=== PATIENT | female | born 2000 | race Hispanic/Latino ===

== ENCOUNTER 2020-11-20 13:35 | Day surgery (SDC) | payer OTHER, SELFPAY ==
[2020-11-20] VITALS (8 sets, daily range): BP systolic 93–139; BP diastolic 55–98; PULSE 61–116; RESP 10–20; TEMP 36.2–36.6; O2SAT 99–100
--- NOTE | ~2020-11-20 | CT_ITS ---
EXAMINATION: CT abdomen pelvis w con EXAM DATE: 11/20/2020 16:00 INDICATION: Right lower quadrant pain. Nausea and vomiting. TECHNIQUE: Spiral CT of the abdomen and pelvis was performed following intravenous injection of 100 m L Omnipaque 350. Axial, coronal and sagittal images were reviewed. The dose-length product (DLP) fo r this examination was 572.35 mGy-cm. The exposure was tailored according to patient size (auto mA e xposure control), and iterative reconstruction (ASIR) was used as additional dose reduction technique . There is no prior study for comparison. FINDINGS: There is an appendicolith, with significantly distended fluid-filled appendix and adjacent inflammation. The diameter of the appendix up to 1.4 cm. No evidence of perforation. The liver, sple en, adrenal glands and pancreas are unremarkable. Gallbladder is unremarkable. No biliary obstructi on. Portal and splenic veins are patent. Kidneys enhance symmetrically. There is no hydronephrosis . The uterus is unremarkable. The bladder is unremarkable. There is no retroperitoneal or pelvic lymphadenopathy. The stomach and small bowel are unremarkable. There is expected amount of colonic stool. No free i ntraperitoneal gas. The heart is normal in size. There are no pericardial or pleural effusions. T he lung bases are unremarkable. The bones are unremarkable. IMPRESSION: Acute uncomplicated appendicitis. I discussed appendicitis with Gus Escobar PA-C at 11/20/2020 16:15 PROFESSOR OF VOICE. Reviewed, dictated and finalized at location A. ESSOR OF VOICE
[2020-11-20 13:56] LABS: Add Urine Microscopic? NO; Appearance Urine Clear (Clear); Bilirubin Urine Negative (Negative); Blood Urine Negative (Negative); Color Urine Straw (Yellow); Glucose Urine UA Negative (Negative); Ketones Urine Negative (Negative); Leukocyte Esterase Ur Negative LEU/UL (Negative); Nitrate Urine Negative (Negative); Protein Urine Negative (Negative); Specific Grav Ur 1.011 (1.001-1.035); Urobilinogen Urine Negative mg/dL (<2.0)
[2020-11-20] MEDS: ONDANSETRON INJ 4 MG/2 ML VIAL IV PUSH ×2 (14:25→16:21)
[2020-11-20] MEDS: SODIUM CHLORIDE 0.9% IV 1,000 ML 999 ML IV CONT (14:25)
[2020-11-20] MEDS: FAMOTIDINE 20 MG/2 ML VIAL IV PUSH (14:26)
--- NOTE | 2020-11-20 14:29 | PC.NURSE ---
Lab rejected green and purple top tube. Blood being re-drawn at this time.
--- NOTE | 2020-11-20 14:30 | ED.ABDPAIN ---
HPI - Abdominal Pain General Chief Complaint: Abdominal Pain <Gus Escobar PA-C Last Filed: 11/20/20 16:32> Stated Complaint: abdominal pain <Gus Escobar PA-C Rut Last Filed: 11/20/20 16:32> Time Seen by Provider: 11/20/20 13:37 <JULIEN Santoyo Last Filed: 11/20/20 16:32> Source: patient and family <JULIEN Santoyo Last Filed: 11/20/20 16:32> Mode of arrival: ambulatory <Gus Neal ShawnJULIEN Rut Last Filed: 11/20/20 16:32> Limitations: no limitations <Gus Neal ShawnJULIEN Last Filed: 11/20/20 16:32> History of Present Illness HPI narrative: Patient is a 20-year-old female who presents to emergency department for evaluation of abdominal pain that began Saturday described as a crampy abdominal pain is now having worsening pain in the lower abdomen patient notes one episode of emesis this morning denies similar occurrence in the past denies other complaints presents in no distress has not taken anything for her symptoms pain does not radiate and is made worse with p.o. intake <Gus Escobar PA-C Last Filed: 11/20/20 16:32> Related Data Allergies/Adverse Reactions: Allergies Allergy/AdvReac Type Severity Reaction Status Date / Time No Known Drug Allergies Allergy Unknown Verified 11/20/20 14:12 <Gus Escobar PA-C Last Filed: 11/20/20 16:32> Review of Systems Review of Systems: All systems reviewed & are unremarkable except as noted in HPI and below <Gus Escobar PA-C Last Filed: 11/20/20 16:32> PMFSH Past Medical History Medical History: Medical History Asthma <Gus Escobar PA-C Last Filed: 11/20/20 16:32> Social History Social History: Social History Social History: marijuana everyday Smoking status: Never smoker Substance use type: marijuana <JULIEN Santoyo Last Filed: 11/20/20 16:32> Exam Narrative: Exam Narrative: GENERAL: Well-appearing, well-nourished, and in no acute distress. HEAD: Normocephalic, atraumatic. EYES: PERRLA and EOMI. ENT: Nares clear, no rhinorrhea or epistaxis. Mucous membranes moist. CHEST: Clear to auscultation. No respiratory distress. No wheezes rales or rhonchi HEART: Regular rate and rhythm. No murmur heard. Normal peripheral pulses. ABDOMEN: Soft, tenderness in the lower quadrants of the abdomen specifically the right lower quadrant no rebound or guarding, nondistended EXTREMITIES: Normal range of motion. No edema. SKIN: Warm, dry, no rash. NEURO: No focal deficits. Alert and oriented x3. PSYCH: Normal mood and affect. <Gus Escobar PA-C - Last Filed: 11/20/20 16:32> Course Course Emergency Course: Patient at this time in the room no distress has been hydrated will be given IV antibiotic has been given medications for pain patient aware of discussion with surgeon patient afebrile nontoxic. <JULIEN Santoyo Last Filed: 11/20/20 16:32> ENTRY LEVEL PARALEGAL/PA Physician Supervision For this patient encounter, I reviewed the ENTRY LEVEL PARALEGAL or PA documentation, treatment plan, and medical decision making; and I had [id number] time with this patient. Patient is aware she will be going to have appendectomy today. Her mother is bedside. She is in acute distress. <Estephanie Alfaro MD - Last Filed: 11/20/20 17:13> Consultations Consultation #1: Discussed case with Dr. Henry who would like the patient to receive 2 g of Ancef and to have consent for a laparoscopic appendectomy <Gus Escobar PA-C - Last Filed: 11/20/20 16:32> Date: 11/20/20 <JULIEN Santoyo Last Filed: 11/20/20 16:32> Time: 16:31 <JULIEN Santoyo Last Filed: 11/20/20 16:32> Vital Signs Vital signs: Vital Signs Temperature 97.4 F L 11/20/20 13:39 Pulse Rate 62 11/20/20 13:39 Respiratory Rate 14 11/20/20 13:39 Blood Pre
[2020-11-20 15:11] LABS: Basophils Percent Auto 0.1 % (0.2-1.2); Eosinophils Percent Auto 0.1 % (0-4.4); Hemoglobin 12.2 g/dL (12.0-15.0); Immature Granulocyte Absolute 0.04 K/mm3 (0.00-0.031); Immature Granulocyte Percent A 0.5 % (0-0.5); Lymphocytes Absolute Auto 1.26 K/mm3 (0.9-3.2); Lymphocytes Percent Auto 14.8 % (18.3-44.2); Mean Corpuscular Hemoglobin 27.4 pg (26-34); Mean Platelet Volume 9.5 fl (7.4-10.4); Monocytes Absolute Auto 0.8 K/mm3 (0.1-0.6); Neutrophils Absolute Auto 6.4 K/mm3 (1.3-6.7); Neutrophils Percent Auto 75.5 % (45.5-73.1); Platelet Count Result 283 k/mm3 (150-375); Red Blood Count 4.46 M/mm3 (4.2-5.4); Red Cell Distribution Width 13.2 % (11.5-14.5); White Blood Count 8.5 K/mm3 (4.5-10.0)
[2020-11-20 15:22] LABS: Alanine Aminotransferase 8 U/L (4-35); Alkaline Phosphatase 74 U/L (38-126); Anion Gap 8 mmol/L (8-16); Aspartate Amino Transferase 18 U/L (14-36); Bilirubin,Total 0.5 mg/dL (0.2-1.3); Blood Urea Nitrogen 6 mg/dL (7-17); Calcium 9.1 mg/dL (8.4-10.2); Carbon Dioxide 27 mmol/L (22-30); Chloride 102 mmol/L (98-107); Estimated CRCL calculation 157 ml/min; Estimated Glomerular Filt Rate > 60; Glucose 93 mg/dL (65-105); Lipase 36 U/L (23-300); Potassium 3.5 mmol/L (3.4-5.0); Sodium 137 mmol/L (137-145)
--- NOTE | 2020-11-20 15:29 | PC.NURSE ---
patient to restroom. waiting for CT results.
--- NOTE | 2020-11-20 16:18 | PC.NURSE ---
patient back from CT. waiting for further orders from provider vs disposition.
[2020-11-20] MEDS: MORPHINE SULFATE (*CRX) 4 MG/ML INJ IV PUSH (16:21)
--- NOTE | 2020-11-20 16:41 | WPDANESEPP ---
Anes - Eval Pre Procedure Procedure: Operation Date: 11/20/20 05:15 Proposed Procedures p Laparoscopic Appendectomy - David Henry MD Date/Time: 11/20/20 16:41 Surgeon: nicky Pre Op Diagnosis: abdominal pain Patient Data Age: 20 Gender: F Height: 1.63 m Weight: 83.91 kg Last Vital Signs Temp 36.6 C 11/20/20 14:08 Pulse 84 11/20/20 14:08 Resp 18 11/20/20 14:08 BP 139/84 11/20/20 14:08 Pulse Ox 100 11/20/20 14:08 Allergies Allergy/AdvReac Type Severity Reaction Status Date / Time No Known Drug Allergies Allergy Unknown Verified 11/20/20 14:12 Home Medications Medication Instructions Recorded Confirmed Type albuterol sulfate 2 puff INHALATION QID PRN #6.7 g 11/20/20 Rx Laboratory Tests 11/20/20 11/20/20 11/20/20 13:50 15:00 15:00 WBC 8.5 K/mm3 K/mm3 (4.5-10.0) RBC 4.46 M/mm3 M/mm3 (4.2-5.4) Hgb 12.2 g/dL g/dL (12.0-15.0) Hct 37.0 % % (37.0-47.0) MCV 83.0 fl fl (80-100) MCH 27.4 pg pg (26-34) MCHC 33.0 g/dl g/dl (32-36) RDW 13.2 % % (11.5-14.5) Plt Count 283 k/mm3 k/mm3 (150-375) MPV 9.5 fl fl (7.4-10.4) Immature Gran % (Auto) 0.5 % % (0-0.5) Neut % (Auto) 75.5 % H % (45.5-73.1) Lymph % (Auto) 14.8 % L % (18.3-44.2) [place] % (Auto) 9.0 % H % (2.6-8.5) Eos % (Auto) 0.1 % % (0-4.4) Baso % (Auto) 0.1 % L % (0.2-1.2) Lymph # (Auto) 1.26 K/mm3 K/mm3 (0.9-3.2) [place] # (Auto) 0.8 K/mm3 H K/mm3 (0.1-0.6) Eos # (Auto) 0.0 K/mm3 K/mm3 (0-0.3) Baso # (Auto) 0.0 K/mm3 K/mm3 (0.0-0.1) Abs Immat Gran (auto) 0.04 K/mm3 H K/mm3 (0.00-0.031) Absolute Neuts (auto) 6.4 K/mm3 K/mm3 (1.3-6.7) Absolute Nucleated RBC 0.0 K/mm3 K/mm3 (0.0-0.012) Nucleated RBC % 0.0 % % (0.0-0.2) Sodium 137 mmol/L mmol/L (137-145) Potassium 3.5 mmol/L mmol/L (3.4-5.0) Chloride 102 mmol/L mmol/L (98-107) Carbon Dioxide 27 mmol/L mmol/L (22-30) Anion Gap 8 mmol/L mmol/L (8-16) BUN 6 mg/dL L mg/dL (7-17) Creatinine 0.50 mg/dL L mg/dL (0.7-1.0) Estim Creat Clear Calc 157 ml/min ml/min Estimated GFR > 60 (59 - ) Glucose 93 mg/dL mg/dL (65-105) Calcium 9.1 mg/dL mg/dL (8.4-10.2) Total Bilirubin 0.5 mg/dL mg/dL (0.2-1.3) AST 18 U/L U/L (14-36) ALT 8 U/L U/L (4-35) Alkaline Phosphatase 74 U/L U/L (38-126) Total Protein 8.0 g/dL g/dL (6.3-8.2) Albumin 4.0 g/dL g/dL (3.5-5.1) Lipase 36 U/L U/L (23-300) Urine Color Straw (Yellow) Urine Appearance Clear (Clear) Urine pH 8.0 (5.0-9.0) Ur Specific [place] 1.011 (1.001-1.035) Urine Protein Negative mg/dL mg/dL (Negative) Urine Glucose (UA) Negative mg/dL mg/dL (Negative) Urine Ketones Negative mg/dL mg/dL (Negative) Ur Blood (Man) Negative (Negative) Urine Nitrate Negative (Negative) Urine Bilirubin Negative (Negative) Urine Urobilinogen Negative mg/dL mg/dL (<2.0) Leukocyte Esterase Rfl Negative SWATHI/UL SWATHI/UL (Negative) HCG: negative Patient hx anesthesia problems: none Family hx anesthesia problems: none PMFSH Past Medical History Medical History (Updated 11/20/20 @ 16:45 by Chaparro Clemons CRNA) Asthma Social History Social History (Updated 11/20/20 @ 16:46 by Chaparro Clemons CRNA) Social History: marijuana everyday Smoking status: Never smoker Substance use type: marijuana Exam Day of Procedure 11/20/20 16:41 Patient weight: obese Heart: regular rate and rhythm Lungs: clear to auscultation Airway: Mallampati
--- NOTE | 2020-11-20 16:44 | PC.NURSE ---
This RN took patient by stretcher to OR holding. patient released to [facility] in OR.
--- NOTE | 2020-11-20 17:05 | PM.SD ---
Same Day Admit/Disch: HPI History of Present Illness Chief complaint: abdominal pain Narrative: Eve Paz is a 20 year old female with 2 day history of mid abdominal pain that moved to the right lower quadrant. Last night it got worse. She had some vomiting. It sometimes radiates to her back. She came to the emergency room were she was noted to have a normal white blood cell count. CT scan however showed a dilated appendix of 14 mm with periappendiceal inflammatory changes consistent with acute appendicitis. She is taken to surgery now for laparoscopic appendectomy. She is generally healthy although she does have asthma. She smokes marijuana daily no previous abdominal surgery PMFSH Past Medical History Medical History Asthma Social History Social History Social History: marijuana everyday Smoking status: Never smoker Substance use type: marijuana Same Day Admit/Disch: Med Pre-admit Medications Home Medications Medication Instructions Recorded Confirmed Type albuterol sulfate 2 puff INHALATION QID PRN #6.7 g 11/20/20 Rx hydrocodone-acetaminophen 1 - 2 tablet PO Q6H PRN #7 tablet 11/20/20 Rx ketorolac 10 mg PO Q6H 4 Days #16 tablet 11/20/20 Rx Exam Const: General: comfortable, no acute distress, alert and awake HENMT: Head: normocephalic and atraumatic Mouth: Yes Normal oral and palatal mucosa present Eyes: Conjunctivae: conjunctivae normal Pupils: Equal, round and reactive pupils present EOM: EOMs intact bilaterally Neck: Neck: normal visual inspection, no lymphadenopathy and nontender Resp: Effort & Inspection: normal respiratory effort Auscultation: clear to auscultation bilaterally Cardio: Rate: regular rate Rhythm: regular rhythm Heart sounds: no gallops, no murmurs and no rubs GI: Inspection: non-distended, no obesity and no scars GI Palp: Yes Soft to palpation, Yes Tenderness to palpation present (GI) (Both lower quadrants right more than left), Yes Guarding due to palpation present (GI) (Right lower quadrant), No Hepatomegaly present, No Splenomegaly present, No Hernia present and No Palpable mass present Auscultation: normal bowel sounds Skin: Lesions: no lesions Rashes: no rashes Neuro: General: no focal motor deficits and CN's II-XI intact bilaterally Cranial nerves: Yes Equal, round and reactive pupils present, Yes Bilaterally intact EOM present, Yes facial symmetry and Yes Midline tongue present Speech: normal speech Motor exam (neuro): 5/5 motor strength present throughout and Motor abnormalities not present Extrem: General: no clubbing, cyanosis or edema and edema Psych: Affect: normal affect Thought process: Normal thought process present Insight: Good insight present (Psych) DS: Data Data Completed and Pending Labs on day of discharge: Labs from last 24 hours 11/20/20 11/20/20 11/20/20 15:00 15:00 13:50 WBC 8.5 RBC 4.46 Hgb 12.2 Hct 37.0 MCV 83.0 MCH 27.4 MCHC 33.0 RDW 13.2 Plt Count 283 MPV 9.5 Immature Gran % (Auto) 0.5 Neut % (Auto) 75.5 H Lymph % (Auto) 14.8 L [place] % (Auto) 9.0 H Eos % (Auto) 0.1 Baso % (Auto) 0.1 L Lymph # (Auto) 1.26 [place] # (Auto) 0.8 H Eos # (Auto) 0.0 Baso # (Auto) 0.0 Abs Immat Gran (auto) 0.04 H Absolute Neuts (auto) 6.4 Absolute Nucleated RBC 0.0 Nucleated RBC % 0.0 Sodium 137 Potassium 3.5 Chloride 102 Carbon Dioxide 27 Anion Gap 8 BUN 6 L Creatinine 0.50 L Estim Creat Clear Calc 157 Estimated GFR > 60 Glucose 93 Calcium 9.1 Total Bilirubin 0.5 AST 18 ALT 8 Alkaline Phosphatase 74 Total Protein 8.0 Albumin 4.0 Lipase 36 Urine Color Straw Urine Appearance Clear Urine pH 8.0 Ur Specific [place] 1.011 Urine Protein Negative Urine Glucose (UA) Negativ
--- NOTE | 2020-11-20 17:14 | P.PNAN_ITS ---
Anes - Eval Final PreProcedure Day of Procedure 11/20/20 17:14 Patient weight: obese Heart: regular rate and rhythm Lungs: clear to auscultation Airway: Mallampati scale class II Neurological: alert and oriented Last oral intake: >/= 8 hours ASA classification: II Emergent: yes Anesthetic plan: proceed Anesthesia type and monitoring: general ETT and standard monitoring Informed Consent: The patient's anesthetic plan and its attendant risks and be nefits were discussed with the patient/family/POA. Questions were solicited and answers provided to the satisfaction of the patient/family/POA.
[2020-11-20] MEDS: LACTATED RINGERS 1,000 ML 30 ML IV CONT ×2 (17:16→18:09)
--- NOTE | 2020-11-20 17:16 | PM.PROC ---
Procedure Note - Detailed Date of procedure: 11/20/20 Pre-op diagnosis: abdominal pain acute appendicitis Post-op diagnosis: same Procedure performed: Laparoscopic appendectomy Description of procedure: The patient was taken to surgery and induced into general anesthesia. The abdomen was prepped and draped. Trocars were placed in the usual fashion using 0.5% Marcaine with epinephrine and applied Medical optical trocars. A 5 mm camera was used. The patient was placed in Trendelenburg with the right side elevated. The appendix was found and was elevated anteriorly. Dissection was carried out in the mesoappendix. The mesoappendix was dissectedand the appendiceal vessels cauterized for hemostasis. Eventually the base of the appendix was skeletonized. The appendix was ligated at its base with a Vicryl endo-loop. It was amputated just above the ligature and the mucosa of the appendiceal stump was cauterized. The appendix was immediately placed in an Endo-Catch bag and retrieved through the 10 11 left lower quadrant trocar site. We replaced the 10 11 trocar and reviewed the right lower quadrant and areas of dissection. All looked good with no evidence of bleeding or other problems. We evacuated CO2 and removed the trocar sleeves. Skin wounds were closed with subcuticular 4 O Monocryl skin suture. The wounds were dressed with Exofin surgical adhesive. The patient was awakened and taken to recovery in good condition. Sponge and needle counts were correct x2. Anesthesia: GETA and local (0.5% Marcaine with epinephrine) Surgeon: David Henry MD Drawer In Stitch Bonding Machine: Tyrel BARRON Estimated blood loss (mL): 5 Drains: No Packing: No Pathology: yes (Appendix) Complications: None Condition: stable Disposition: PACU Findings: Acute non perforated appendicitis
[2020-11-20] MEDS: ceFAZolin 2 GM/D5W 50 ML 2 GM/50 ML BAG IVPB ×2 (17:19)
[2020-11-20] MEDS: KETOROLAC 30 MG/ML VIAL (*BKC) IV PUSH (17:51)
--- NOTE | 2020-11-20 18:02 | SUR.PHASEI ---
1700 pt brought to pacu to be prepared for surgery by rolly medina gina, crna, tootie wade, internet designer. dr saunders also at bedside discussing options with pt and rather to continue with surgery or treat with antibiotics. pt agrees to proceed with surgery. consent signed at bedside.
== END 2020-11-20 19:40 | disposition home or self-care (01) ==
LOC: ANHED 16:32 → ANHSURGERY 16:33
PROVIDERS: Emergency Medicine; Emergency Provider General Practice; PCP Pediatrics; Visit Provider Surgery
PROC: 0DTJ4ZZ Resection of Appendix, Percutaneous Endoscopic Approach (ICD-10-PCS; CPT 44970; principal; 2020-11-20 05:15)
DX: K35.30 Acute appendicitis with localized peritonitis, without perforation or gangrene (principal); F12.90 Cannabis use, unspecified, uncomplicated; J45.909 Unspecified asthma, uncomplicated; E66.9 Obesity, unspecified
CPT/HCPCS: 44970; 36415; 74177; 80053; 81003; 81025; 83690; 85025; 88304; 96361; 96365; 96375; 96376; 99285; A9270; J0131; J0330; J0690; J1100; J1885; J2270; J2405; J2704; J2710; J3010; J7030; J7120; Q9967

== ENCOUNTER 2020-11-26 08:38 | Observation (INO) | payer OTHER, SELFPAY ==
--- NOTE | ~2020-11-26 | XR_ITS ---
EXAMINATION: XR chest 1V portable EXAM DATE: 11/26/2020 09:18 INDICATION: low grade fever, post-appendectomy surgical site pain. TECHNIQUE: Portable AP frontal chest x-ray was obtained. There is no prior study for comparison. FINDINGS: The lungs are clear. There are no pleural effusions. The cardiomediastinal silhouette is within normal limits. There is no pneumothorax suspected. The bones and soft tissues are unremarkab le. IMPRESSION: No acute cardiopulmonary findings. Reviewed, dictated and finalized at location A.
--- NOTE | ~2020-11-26 | CT_ITS ---
EXAMINATION: CT abdomen pelvis w con EXAM DATE: 11/26/2020 11:34 INDICATION: s/p appendectomy , abscess. Low abdominal pain. TECHNIQUE: Spiral CT of the abdomen and pelvis was performed following intravenous injection of 100 m L Omnipaque 350. Axial, coronal and sagittal images were reviewed. The dose-length product (DLP) fo r this examination was 563.06 mGy-cm. The exposure was tailored according to patient size (auto mA e xposure control), and iterative reconstruction (ASIR) was used as additional dose reduction technique . Comparison is made to prior examination from 11/20/2020. FINDINGS: There is been interval appendectomy. Interval development of a small pericecal abscess an uring 2 x 4 cm. Some scattered reactive pericecal lymph nodes. There is no direct line of site to thi s for percutaneous drainage. On prior study there was small amount of free pelvic fluid in the pouch of Juan Ramon. Today there are similar amount but now there is enhancing rim to this with several small foci of gas, consistent with abscess. This also measures about 2 x 4 cm. There is fat stranding left lower quadrant abdominal wall with skin thickening, subcutaneous fluid an d gas without contained organized wall. Region measures about 3 cm in diameter, probably small postop erative hematoma but cellulitis or early developing abscess not excludable. Several tiny foci of free intraperitoneal gas likely postoperative. The liver, spleen, adrenal glands and pancreas are unremarkable. Gallbladder is unremarkable. No bi liary obstruction. Portal and splenic veins are patent. Kidneys enhance symmetrically. There is no hydronephrosis. The uterus is anteverted and morphologically normal. The bladder is unremarkable . There is no retroperitoneal or pelvic lymphadenopathy. The stomach and small bowel are unremarkable. There is expected amount of colonic stool. The heart is normal in size. There are no pericardial or pleural effusions. The lung bases are unremarkable. There are no osteoblastic or osteolytic lesions identified. IMPRESSION: 1. Small pericecal and small deep pelvic abscesses. Percutaneous drainage would be challenging due t o small size and no direct line of site. 2. Left lower abdominal trocar site fluid and gas pocket probably hematoma, no organized wall to spe cifically suggest infection. Overlying skin thickening, possible cellulitis. Reviewed, dictated and finalized at location [facility]. [facility] IMPRESSION: 1. Small pericecal and small deep pelvic abscesses. Percutaneous drainage woul d be challenging due to small size and no direct line of site. 2. Left lower abdominal trocar site fluid and gas pocket probably hematoma, no organized wall to specifically suggest infection. Overlying skin thickening, p ossible cellulitis.
[2020-11-26 08:48] VITALS: BP 106/65; PULSE 100; RESP 18; TEMP 37.2; O2SAT 100
[2020-11-26 09:06] LABS: Basophils Percent Auto 0.2 % (0.2-1.2); Eosinophils Absolute Auto 0.1 K/mm3 (0-0.3); Eosinophils Percent Auto 1.2 % (0-4.4); Hematocrit 37.7 % (37.0-47.0); Hemoglobin 12.3 g/dL (12.0-15.0); Immature Granulocyte Absolute 0.04 K/mm3 (0.00-0.031); Immature Granulocyte Percent A 0.4 % (0-0.5); Lymphocytes Absolute Auto 2.19 K/mm3 (0.9-3.2); Lymphocytes Percent Auto 20.6 % (18.3-44.2); Mean Corpuscular HGB Conc 32.6 g/dl (32-36); Mean Corpuscular Hemoglobin 26.9 pg (26-34); Mean Corpuscular Volume 82.5 fl (80-100); Mean Platelet Volume 8.9 fl (7.4-10.4); Monocytes Absolute Auto 0.8 K/mm3 (0.1-0.6); Monocytes Percent Auto 7.8 % (2.6-8.5); Neutrophils Absolute Auto 7.4 K/mm3 (1.3-6.7); Neutrophils Percent Auto 69.8 % (45.5-73.1); Platelet Count Result 367 k/mm3 (150-375); Red Blood Count 4.57 M/mm3 (4.2-5.4); Red Cell Distribution Width 13.2 % (11.5-14.5); White Blood Count 10.6 K/mm3 (4.5-10.0)
[2020-11-26 09:16] LABS: Prothrombin Time 13.6 Seconds (11.1-14.7)
[2020-11-26 09:17] LABS: Partial Thromboplastin Time 38.6 SECONDS (22.3-36.8)
[2020-11-26 09:23] LABS: Alanine Aminotransferase 13 U/L (4-35); Albumin Level 4.3 g/dL (3.5-5.1); Alkaline Phosphatase 91 U/L (38-126); Anion Gap 10 mmol/L (8-16); Aspartate Amino Transferase 23 U/L (14-36); Bilirubin,Total 0.5 mg/dL (0.2-1.3); Blood Urea Nitrogen 9 mg/dL (7-17); Calcium 9.6 mg/dL (8.4-10.2); Carbon Dioxide 30 mmol/L (22-30); Chloride 99 mmol/L (98-107); Estimated CRCL calculation 148 ml/min; Estimated Glomerular Filt Rate > 60; Glucose 98 mg/dL (65-105); Potassium 3.4 mmol/L (3.4-5.0); Sodium 139 mmol/L (137-145)
[2020-11-26 09:27] LABS: Lactic Acid Reflex 0.7 mmol/L (0.7-2.1)
[2020-11-26 09:39] LABS: CRP 16.1 mg/dL (<1.0)
[2020-11-26] MEDS: SODIUM CHLORIDE 0.9% IV 1,000 ML 999 ML IV CONT (10:20)
[2020-11-26 10:44] LABS: Add Urine Microscopic? YES; Appearance Urine Clear (Clear); Bacteria Urine Trace /hpf; Bilirubin Urine Negative (Negative); Blood Urine Negative (Negative); Color Urine Yellow (Yellow); Glucose Urine UA Negative (Negative); Ketones Urine 1+ mg/dL (Negative); Leukocyte Esterase Ur Negative LEU/UL (Negative); Mucus Urine Heavy /lpf; Nitrate Urine Negative (Negative); Protein Urine 1+ mg/dL (Negative); RBC Urine 0-2 /hpf (0-2); Specific Grav Ur 1.026 (1.001-1.035); Squamous Epithelial Cell Urine Many /hpf (Few); WBC Urine 0-3 /hpf
--- NOTE | 2020-11-26 10:45 | ED.SKABFB ---
HPI - Skin/Abscess/Foreign Bdy General Chief complaint: Skin/Abscess/Foreign Body Stated complaint: infected appendectomy incision Time Seen by Provider: 11/26/20 09:24 Source: patient Mode of arrival: ambulatory Limitations: no limitations History of Present Illness HPI narrative: This patient is a 20 year old female who presents for evaluation of a surgical wound infection s/p appendectomy 6 days ago. She noticed 2 days ago her incision in her left lower abdomen was draining brown, malodorous fluid. She also reports redness and tenderness. she denies nausea, vomiting or fever. She was found to have low grade temperature on arrival. Her surgery was performed by Dr. Henry here at [facility]. She denies difficulty urinating or constipation. Related Data Allergies Allergy/AdvReac Type Severity Reaction Status Date / Time No Known Drug Allergies Allergy Unknown Verified 11/20/20 14:12 Review of Systems Review of Systems: All systems reviewed & are unremarkable except as noted in HPI and below Constitutional: Constitutional: Denies chills and Denies fever(s) Cardiovascular: Cardiovascular: Denies chest pain Respiratory: Respiratory: Denies cough and Denies dyspnea Gastrointestinal: Gastrointestinal: Reports abdominal pain, Denies diarrhea, Denies nausea and Denies vomiting Genitourinary: Genitourinary: Denies hematuria, Denies nocturia and Denies flank pain PMFSH Past Medical History Medical History Asthma Surgical History Surgical History Hx of appendectomy Social History Social History Social History: marijuana everyday Smoking status: Current every day smoker Tobacco type: e-cigarettes/vaping Alcohol intake: unknown Substance use: current Substance use type: marijuana Last use: 11/26/20 Gender identity (if verbalized by the patient): Female Sexual Orientation (if Verbalized by the Patient): Straight or Heterosexual Spiritual care concerns: No Exam Const: General: no acute distress and alert Orientation/consciousness: patient oriented x3 Eyes: EOM: EOMs intact bilaterally Resp: Effort & Inspection: normal respiratory effort and no use of accessory muscles Auscultation: clear to auscultation bilaterally Cardio: Rate: regular rate Rhythm: regular rhythm GI: Other: incision located in left lower abdomen with surrounding erythema, induration, brown exudate Skin: Other: left lower abdominal wall cellulitis Neuro: General: patient oriented x3 and moves all extremities Psych: Mental Status: mental status grossly normal Affect: normal affect Course Reevaluation(s) Reevaluation #1: I have discussed with patient the plan to admit to hospital for IV antibiotics. I also discussed CT scan results. Date: 11/26/20 Time: 13:23 Consultations Consultation #1: I have spoke with Dr. Koenig about patient . He has reviewed CT. He accepts patient for admission to his service. He request patient to be continued on IV zosyn. Date: 11/26/20 Time: 13:22 Vital Signs Vital signs: Vital Signs Temperature 99.0 F 11/26/20 08:48 Pulse Rate 100 11/26/20 08:48 Respiratory Rate 18 11/26/20 08:48 Blood Pressure 106/65 11/26/20 08:48 Pulse Oximetry 100 11/26/20 08:48 Temperature 98.4 F 11/26/20 14:30 Pulse Rate 85 11/26/20 14:30 Respiratory Rate 16 11/26/20 14:30 Blood Pressure 109/64 11/26/20 14:30 Pulse Oximetry 100 11/26/20 14:30 MDM - Skin/Abscess/Foreign Bdy Lab Data Attestation: I reviewed the patient's lab results. Result diagrams: 11/26/20 09:00 11/26/20 09:00 Labs: Lab Results 11/26/20 11/26/20 11/26/20 Range/Units 09:00 09:00 09:00 WBC 10.6 H (4.5-10.0) K/mm3 RBC 4.57 (4.2-5.4) M/mm3 Hgb 12.3 (12.0-15.0) g
[2020-11-26 14:30] VITALS: BP 109/64; PULSE 85; RESP 16; TEMP 36.9; O2SAT 100
[2020-11-26] MEDS: SODIUM CHLORIDE 0.9% IV 1,000 ML 125 ML IV CONT ×2 (14:45→23:36)
--- NOTE | 2020-11-26 15:52 | ADMGEN ---
This patient, Eve Paz, was admitted to [facility]. Patient/family oriented to hospital policies and general routines including ID bracelet, bed and alarms, visiting hours, pain management, procedures, bathroom and other care routines, personal items, smoking policy, room service/diet, and visiting hours. Information on how to activate the Rapid Response Team has been discussed. Patient/Family are encouraged to report perceived risks to care and to ask questions if they do not understand what they are told or what they should do.
--- NOTE | 2020-11-26 17:06 | PM.IMHP ---
H&P: HPI History of Present Illness Date/Time: 11/26/20 17:06 Chief Complaint: Pain and drainage at left lower quadrant wound site Narrative: HPI narrative: Eve Paz is a 20 year old female who states that she has gradually gotten worse and worse pain with surrounding redness at the left lower quadrant port site after her appendectomy done on 11/20/2020. She is a 20 year old female who presents for evaluation of a surgical wound infection s/p appendectomy 6 days ago. She noticed 2 days ago her incision in her left lower abdomen was draining brown, malodorous fluid. She also reports redness and tenderness. she denies nausea, vomiting or fever. Apparently she did not contact the office as instructed on her discharge orders at that time. because the pain was getting worse and she was not having any success thick getting it to get better she came to the emergency room for evaluation today. She was found to have low grade temperature on arrival. Her surgery was performed by luis Blackburn at [facility] on 11/20/2020. She denies difficulty urinating or constipation. Workup in the emergency room included inspection of her wound but apparently they did not feel inclined open it. CT scan of the abdomen pelvis was done and to small intra-abdominal fluid collections were seen. Whether not these are abscesses is hard to tell us the patient's white count is only 10,000 and she is not complaining of any intra-abdominal pain. I believe I would of seen her in the emergency room or in the office I put of just open the wound in the left lower quadrant however because of the deep infection or possibility of it I admitted the patient as an observation and saw her on the floor having been in surgery when she was 1st evaluated in the emergency room today. I discussed this with her and told her she would feel a lot better if we open this wound and took a culture and she was willing to. See plan below. Review of Systems Constitutional: Constitutional: Reports no additional constitutional complaints, Reports fatigue and Denies malaise Eyes: Eyes: Denies change in vision and Denies loss of vision ENT: Reports Normal hearing present, Denies change in voice, Denies dizziness, Denies hoarseness and Denies sore throat Cardiovascular: Cardiovascular: Denies chest pain, Denies leg edema and Denies dyspnea Respiratory: Respiratory: Denies cough, Denies dyspnea and Denies wheezing Gastrointestinal: Gastrointestinal: Denies hematochezia, Denies change in bowel habits and Denies heartburn Genitourinary: Genitourinary: Denies urinary frequency and Denies urinary incontinence Neurologic: Reports Normal hearing present, Denies confusion, Denies dizziness, Denies loss of vision, Denies memory loss and Denies seizure-like activity Psychiatric: Psychiatric: Denies confusion, Denies depression and Denies memory loss Endocrine: Endocrine: Denies cold intolerance and Reports fatigue Hematologic/Lymphatic: Hematologic/Lymphatic: Denies easy bleeding and Denies easy bruising Allergic/Immunologic: Allergic/Immunologic: Denies wheezing PMFSH Past Medical History Medical History Asthma Surgical History Surgical History Hx of appendectomy Social History Social History Social History: marijuana everyday Smoking status: Current every day smoker Tobacco type: e-cigarettes/vaping Alcohol intake: unknown Substance use: current Substance use type: marijuana Last use: 11/26/20 Gender identity (if verbalized by the patient): Female Sexual Orientation (if Verbalized by the Patient): Straight or Heterosexual Spiritual care concerns: No Meds Home Medications and Allergies Home Medications Medication Instructions Recorded Confirmed Type albutero
[2020-11-26] MEDS: FAMOTIDINE 20 MG TABLET PO (19:56)
[2020-11-26 21:25] VITALS: BP 117/67; PULSE 58; RESP 18; TEMP 36.6; O2SAT 98
[2020-11-27] MEDS: HYDROcodone/acetaminophen (*CRX) 5-325 MG TABLET 1 TAB PO ×2 (05:26→11:32)
[2020-11-27 05:28] VITALS: BP 120/56; PULSE 67; RESP 18; TEMP 36.2; O2SAT 98
[2020-11-27] MEDS: ONDANSETRON INJ 4 MG/2 ML VIAL IV PUSH (07:36)
[2020-11-27 08:06] LABS: Basophils Percent Auto 0.2 % (0.2-1.2); Eosinophils Absolute Auto 0.2 K/mm3 (0-0.3); Hematocrit 32.7 % (37.0-47.0); Hemoglobin 10.4 g/dL (12.0-15.0); Immature Granulocyte Absolute 0.04 K/mm3 (0.00-0.031); Immature Granulocyte Percent A 0.5 % (0-0.5); Lymphocytes Absolute Auto 2.21 K/mm3 (0.9-3.2); Lymphocytes Percent Auto 25.5 % (18.3-44.2); Mean Corpuscular HGB Conc 31.8 g/dl (32-36); Mean Corpuscular Hemoglobin 26.8 pg (26-34); Mean Corpuscular Volume 84.3 fl (80-100); Mean Platelet Volume 8.9 fl (7.4-10.4); Monocytes Absolute Auto 0.7 K/mm3 (0.1-0.6); Monocytes Percent Auto 7.7 % (2.6-8.5); Neutrophils Absolute Auto 5.6 K/mm3 (1.3-6.7); Neutrophils Percent Auto 64.1 % (45.5-73.1); Platelet Count Result 327 k/mm3 (150-375); Red Blood Count 3.88 M/mm3 (4.2-5.4); Red Cell Distribution Width 13.3 % (11.5-14.5); White Blood Count 8.7 K/mm3 (4.5-10.0)
[2020-11-27 08:20] LABS: Alanine Aminotransferase 9 U/L (4-35); Albumin Level 3.5 g/dL (3.5-5.1); Alkaline Phosphatase 75 U/L (38-126); Anion Gap 9 mmol/L (8-16); Aspartate Amino Transferase 14 U/L (14-36); Bilirubin,Total 0.4 mg/dL (0.2-1.3); Blood Urea Nitrogen 6 mg/dL (7-17); Calcium 8.9 mg/dL (8.4-10.2); Carbon Dioxide 26 mmol/L (22-30); Chloride 105 mmol/L (98-107); Estimated CRCL calculation 153 ml/min; Estimated Glomerular Filt Rate > 60; Glucose 88 mg/dL (65-105); Magnesium 2.1 mg/dL (1.6-2.3); Potassium 3.5 mmol/L (3.4-5.0); Sodium 140 mmol/L (137-145)
[2020-11-27] MEDS: SODIUM CHLORIDE 0.9% IV 1,000 ML 125 ML IV CONT (09:38)
[2020-11-27] MEDS: FAMOTIDINE 20 MG TABLET PO (09:38)
[2020-11-27] MEDS: MAGNESIUM OXIDE 400 MG TABLET PO (09:38)
--- NOTE | 2020-11-27 09:41 | PM.DS ---
DS: Admitting Diagnosis Admitting Diagnosis Admitting Diagnosis: Wound infection left lower quadrant of abdomen Fluid collections within the pelvis by CT DS: Discharge Diagnosis Discharge Diagnosis (1) Cellulitis of abdominal wall: Onset Date: ~11/23/20 Code(s): L03.311 - Cellulitis of abdominal wall Status: Acute Assessment and Plan: This was secondary to the wound infection noted below. This was treated with IV antibiotics and opening of the wound with packing. (2) Smoker unmotivated to quit: Onset Date: Unknown Code(s): F17.200 - Nicotine dependence, unspecified, uncomplicated Status: Acute Assessment and Plan: Encouraged the patient to stop smoking. Nurses provided the patient with a smoking cessation instruction sheet. (3) Obesity (BMI 30.0-34.9): Onset Date: Unknown Code(s): E66.9 - Obesity, unspecified Status: Acute Assessment and Plan: Encouraged the patient to follow low-fat diet upon discharge. (4) Wound infection after surgery: Onset Date: ~11/24/20 Code(s): T81.49XA - Infection following a procedure, other surgical site, initial encounter Status: Acute Assessment and Plan: On the date of admission wound was opened and culture sent. Preliminary Gram stain shows that not even the Gram stain is back. Therefore, patient sent home on) therapy with Levaquin once a day and metronidazole 3 times a day. (5) Asthma: Onset Date: Unknown Code(s): J45.909 - Unspecified asthma, uncomplicated Status: Chronic Assessment and Plan: Not an active problem. DS: Summary Hospital Course Hospital Course: Patient was admitted mainly because she had a CT scan of the abdomen pelvis in the ER and there were 2 fluid collections in the abdomen suspicious for abscesses. These were not felt to be amenable to percutaneous drainage. When I saw the patient she was actually complain more of the left lower quadrant incision site and was having no intra-abdominal symptoms. White count was only slightly elevated. Therefore, I did an I and D and opening of the infected wound which drained about 30 cc of grayish fluid. This was cultured and C&S and Gram stain are pending at this time. She received 24 hours of IV Zosyn as doing well. She will be sent home on empiric Levaquin and Flagyl since the Gram stain is not even reported yet. She is tolerating regular diet I encouraged her to stop smoking and to go on a low-fat diet to try to lose weight. Also encouraged her to take a diet pre vitamin once a day which will allow her to have some iron and other vitamins for wound healing. Her hemoglobin was down to 10 on the day of discharge. Status at Discharge Functional status at discharge: independent ambulation Overall status at discharge: patient is not back to baseline ( Moving so because of pain from her incision but should rim prove nicely.) Time Spent with Patient Time attestation: Total time spent providing and/or coordinating discharge services: 40 minutes Time spent: Greater than 30 minutes Exam Const: General: cooperative, no acute distress, alert and awake Orientation/consciousness: patient oriented x3 HENMT: Mouth: Yes moist mucous membranes Neck: Neck: normal visual inspection Chest: Chest palpation & inspection: normal inspection of the chest Resp: Effort & Inspection: normal respiratory effort Auscultation: clear to auscultation bilaterally Cardio: Jugular venous distension: no JVD Rate: regular rate Rhythm: regular rhythm GI: Inspection: normal to inspection and incision ( left-sided port sites.) Rectal Exam: deferred Other: The 2 more superior port sites are healing well without signs of infection. The left lower quadrant 12 mm port site was opened and has packing in it. The nurses change the packing the date of discharge. Neuro: General: patient oriented x3 and moves all extremitie
--- NOTE | 2020-11-27 13:51 | PC.NURSE ---
Patient discharged this afternoon following sponge bath and dressing change. Patient actively participated in dressing change with RN and was informed and educated on supplies, process, bathing, pain management, hand hygiene for wound care. Patient also educated on diet and smoking cessation in regards to wound care and wound healing. Patient verbalizes understanding. All questions answered by RN. Patient states her boyfriend will be attending her follow up appointment with her tomorrow to be her primary support person for her dressing changes. PIV removed at time of discharge. Patient escorted to [facility] via wheelchair, where she was picked up by her father.
== END 2020-11-27 13:40 | disposition home or self-care (01) ==
LOC: ANHED 13:29 → ANHCPC 14:08
PROVIDERS: Admitting Provider Surgery; Emergency Provider General Practice; PCP Surgery; Visit Provider Surgery
DX: T81.49XA Infection following a procedure, other surgical site, initial encounter (principal); K65.1 Peritoneal abscess; L03.311 Cellulitis of abdominal wall; Y83.8 Other surgical procedures as the cause of abnormal reaction of the patient, or of later complication, without mention of misadventure at the time of the procedure; Z90.89 Acquired absence of other organs; J45.909 Unspecified asthma, uncomplicated; F17.290 Nicotine dependence, other tobacco product, uncomplicated; F12.90 Cannabis use, unspecified, uncomplicated; E66.9 Obesity, unspecified
CPT/HCPCS: 36415; 71045; 74177; 80053; 81001; 81025; 83605; 83735; 85025; 85610; 85730; 86140; 87070; 87075; 87076; 87077; 87185; 87186; 87205; 96361; 96365; 96367; 96374; 96375; 99285; A9270; G0378; G0379; J2405; J2543; J3370; J7030; Q9967

== ENCOUNTER 2023-08-29 10:00 | Outpatient (CLI) | payer OTHER, SELFPAY ==
[2023-08-29] MEDS: TETANUS,DIPHTHERIA,AC PERTUSSIS ADULT (0.5 ML) BOOSTRIX IM (10:35)
== END 2023-08-29 10:01 | disposition home or self-care (01) ==
LOC: ANHOBOP 10:12
PROVIDERS: PCP Pediatrics; Visit Provider Obstetrics & Gynecology
DX: Z23 Encounter for immunization (principal)
CPT/HCPCS: 90471; 90715

== ENCOUNTER 2023-10-07 14:37 | Outpatient (CLI) | payer OTHER, SELFPAY ==
[2023-10-07 15:30] VITALS: BP 111/68; PULSE 72
[2023-10-07 15:31] VITALS: BP 115/64; PULSE 69
[2023-10-07 15:46] VITALS: BP 114/65; PULSE 69
[2023-10-07 16:01] VITALS: BP 116/68; PULSE 75
== END 2023-10-07 16:01 | disposition home or self-care (01) ==
LOC: ANHOBOP 14:44 → ANHLDR 14:52
PROVIDERS: PCP Pediatrics; Visit Provider Obstetrics & Gynecology
DX: O42.90 Premature rupture of membranes, unspecified as to length of time between rupture and onset of labor, unspecified weeks of gestation (principal); Z3A.00 Weeks of gestation of pregnancy not specified
CPT/HCPCS: 59025; 84112; 99199

== ENCOUNTER 2023-10-17 09:18 | Outpatient (CLI) | payer OTHER, SELFPAY ==
[2023-10-17 09:49] LABS: Basophils Percent Auto 0.5 % (0.2-1.2); Eosinophils Absolute Auto 0.1 K/mm3 (0-0.3); Eosinophils Percent Auto 1.3 % (0-4.4); Hemoglobin 11.8 g/dL (12.0-15.0); Immature Granulocyte Absolute 0.01 K/mm3 (0.00-0.031); Immature Granulocyte Percent A 0.2 % (0-0.5); Lymphocytes Absolute Auto 2.45 K/mm3 (0.9-3.2); Lymphocytes Percent Auto 38.6 % (18.3-44.2); Mean Corpuscular HGB Conc 31.1 g/dl (32-36); Mean Corpuscular Hemoglobin 25.4 pg (26-34); Mean Corpuscular Volume 81.9 fl (80-100); Mean Platelet Volume 9.4 fl (7.4-10.4); Monocytes Absolute Auto 0.7 K/mm3 (0.1-0.6); Monocytes Percent Auto 10.4 % (2.6-8.5); Neutrophils Absolute Auto 3.1 K/mm3 (1.3-6.7); Platelet Count Result 322 k/mm3 (150-375); Red Blood Count 4.64 M/mm3 (4.2-5.4); Red Cell Distribution Width 13.8 % (11.5-14.5); White Blood Count 6.3 K/mm3 (4.5-10.0)
[2023-10-17 09:59] LABS: Alanine Aminotransferase 10 U/L (6-35); Albumin Level 3.6 g/dL (3.5-5.1); Alkaline Phosphatase 157 U/L (38-126); Anion Gap 10 mmol/L (8-16); Aspartate Amino Transferase 18 U/L (14-36); Bilirubin,Total 0.4 mg/dL (0.2-1.3); Blood Urea Nitrogen 8 mg/dL (7-17); Calcium 9.1 mg/dL (8.4-10.2); Carbon Dioxide 21 mmol/L (22-30); Chloride 106 mmol/L (98-107); Estimated Glomerular Filt Rate > 60; Glucose 73 mg/dL (65-110); Potassium 4.3 mmol/L (3.4-5.0); Sodium 137 mmol/L (137-145); Uric Acid 4.6 mg/dL (2.5-7.5)
[2023-10-17 10:01] VITALS: BP 111/73; PULSE 74
[2023-10-17 10:16] VITALS: BP 110/64; PULSE 80
[2023-10-17 10:20] LABS: Appearance Urine Cloudy (Clear); Bacteria Urine 1+ /hpf; Bilirubin Urine Negative (Negative); Blood Urine Negative (Negative); Color Urine Yellow (Yellow); Glucose Urine UA Negative (Negative); Ketones Urine Negative (Negative); Leukocyte Esterase Ur Trace LEU/UL (NEGATIVE); Nitrate Urine Negative (Negative); Non Pathogenic Casts 0-2; Protein Urine Negative (Negative); RBC Urine 0-2 /hpf (0-2); Squamous Epithelial Cell Urine Moderate /hpf (Few); Urobilinogen Urine 0.2 mg/dL (<2.0); WBC Urine 0-5 /hpf (0-3); pH Urine 7.5 (5.0-9.0)
[2023-10-17 10:27] LABS: Add Urine Microscopic? YES
[2023-10-17 10:30] VITALS: BP 109/78; PULSE 74
[2023-10-17 10:30] LABS: Creatinine Urine 100.1 mg/dL; Total Protein Urine Random 7 mg/dL; Ur Ttl Prot Creatinine Ratio 0.07 mg/mg (0-0.20)
[2023-10-17 10:44] VITALS: BMI 36.3
[2023-10-17 10:46] VITALS: BP 105/68; PULSE 63
[2023-10-17 10:54] VITALS: BP 111/73; PULSE 71
== END 2023-10-17 11:00 | disposition home or self-care (01) ==
LOC: ANHOBOP 09:22 → ANHLDR 09:24
PROVIDERS: PCP Family Medicine; Visit Provider Obstetrics & Gynecology
DX: O13.9 Gestational [pregnancy-induced] hypertension without significant proteinuria, unspecified trimester (principal); Z3A.00 Weeks of gestation of pregnancy not specified
CPT/HCPCS: 36415; 59025; 80053; 81001; 82570; 84156; 84550; 85025; 87086; 87088; 99199

== ENCOUNTER 2023-10-28 05:05 | Inpatient (IN) | payer OTHER, SELFPAY ==
[2023-10-28] VITALS (241 sets, daily range): BP systolic 56–177; BP diastolic 25–154; PULSE 35–165; RESP 15–18; TEMP 36.1–37; O2SAT 74–100; BMI 37.0
--- NOTE | 2023-10-28 05:05 | LDADM ---
This patient, Eve Paz, was admitted to Labor/Delivery/Recovery 103 on 10/28/23 at 05:05. Plans for labor, pain management and were discussed with patient. Patient/family oriented to hospital policies and general routines including ID bracelet, bed and alarms, visiting hours, pain management, procedures, bathroom and other care routines, personal items, smoking policy, room service/diet and guest tray routines, infant security routines, and visiting hours. Patient/Family are encouraged to report perceived risks to care and to ask questions if they do not understand what they are told or what they should do. See OBIX for further documentation.
[2023-10-28] MEDS: OXYTOCIN 30 UNITS/NS 500 ML 30 UNITS/500 ML BAG IV CONT (05:55)
[2023-10-28 06:07] LABS: Basophils Percent Auto 0.4 % (0.2-1.2); Eosinophils Absolute Auto 0.1 K/mm3 (0-0.3); Eosinophils Percent Auto 1.2 % (0-4.4); Hematocrit 35.9 % (37.0-47.0); Hemoglobin 11.3 g/dL (12.0-15.0); Immature Granulocyte Absolute 0.02 K/mm3 (0.00-0.031); Immature Granulocyte Percent A 0.2 % (0-0.5); Lymphocytes Absolute Auto 2.82 K/mm3 (0.9-3.2); Lymphocytes Percent Auto 34.7 % (18.3-44.2); Mean Corpuscular HGB Conc 31.5 g/dl (32-36); Mean Corpuscular Hemoglobin 25.5 pg (26-34); Mean Corpuscular Volume 80.9 fl (80-100); Mean Platelet Volume 9.3 fl (7.4-10.4); Monocytes Absolute Auto 0.8 K/mm3 (0.1-0.6); Monocytes Percent Auto 9.7 % (2.6-8.5); Neutrophils Absolute Auto 4.4 K/mm3 (1.3-6.7); Neutrophils Percent Auto 53.8 % (45.5-73.1); Platelet Count Result 319 k/mm3 (150-375); Red Blood Count 4.44 M/mm3 (4.2-5.4); Red Cell Distribution Width 14.2 % (11.5-14.5); White Blood Count 8.1 K/mm3 (4.5-10.0)
[2023-10-28] MEDS: AMPICILLIN 2 GM/NS 100 ML 2 GM/100 ML BAG IVPB (06:14)
[2023-10-28] MEDS: LACTATED RINGERS 1,000 ML 125 ML IV CONT ×3 (06:18→11:23)
--- NOTE | 2023-10-28 07:35 | PM.IMHP ---
H&P: HPI History of Present Illness Date/Time: 10/28/23 07:35 Chief Complaint: Term Narrative: this is E 23-year-old . 0 with an EDC 10/21/2023 confirmed by early visit for induction of labor. She is positive for group B strep. Her cervix is favorable. She has had some mildly elevated blood pressures but it is normal this morning. [facility] Past Medical History Medical History Asthma (Unknown) Surgical History Surgical History Hx of appendectomy 11/20/20 Social History Social History Social History: marijuana everyday Smoking status: Former smoker Tobacco type: cigarettes Second hand tobacco smoke exposure: Yes Alcohol intake: unknown Substance use: never Substance use type: marijuana Last use: 11/26/20 Lack of Transportation: No Lack of Food: Never True Current Housing: I Have Housing Concerned About Future Housing: No Difficulty Paying Gas/Electric Bills: No Difficulty Paying for Meds: No Currently Unemployed: No Education: High School Diploma/GED Difficulty w/ Childcare or Family Care: No Gender identity (if verbalized by the patient): Female Sexual Orientation (if Verbalized by the Patient): Straight or Heterosexual Spiritual care concerns: No Meds Home Medications and Allergies Home Medications Medication Instructions Recorded Confirmed Type albuterol sulfate 90 mcg/actuation 2 puff inhalation QID PRN 11/20/20 10/28/23 Rx aerosol inhaler shortness of breath or wheezing #6.7 grams prenat.vits,darlene,[id number] 1 tablet PO DAILY 10/28/23 10/28/23 History Allergies Allergy/AdvReac Type Severity Reaction Status Date / Time No Known Drug Allergies Allergy Unknown Verified 10/28/23 05:21 Vital Signs Vital Signs - 24 hr 10/28/23 05:39 10/28/23 05:46 10/28/23 06:16 Temperature Pulse Rate 67 75 64 Respiratory Rate Blood Pressure 127/76 116/75 131/81 Oxygen Delivery 10/28/23 05:40 10/28/23 06:31 10/28/23 06:46 Temperature 98.3 F Pulse Rate 62 67 Respiratory Rate 16 Blood Pressure 121/81 92/61 L Oxygen Delivery 10/28/23 07:15 10/28/23 05:57 Temperature Pulse Rate 56 L Respiratory Rate Blood Pressure 124/80 Oxygen Delivery Room Air Exam Const: General: cooperative, healthy appearing and comfortable Nutritional Appearance: average body habitus Orientation/consciousness: oriented to person, oriented to place and oriented to time HENMT: Head: normal to inspection Resp: Effort & Inspection: normal respiratory effort Cardio: Rate: regular rate Rhythm: regular rhythm Heart sounds: S1 normal heart sound present and S2 normal heart sound present GI: Inspection: normal to inspection ( Gravid soft uterus) : External Female Exam: normal external appearance Speculum Exam - Vagina: normal appearance of the vagina Speculum Exam - Cervix: normal appearance of the cervix ( cervix 2.5/50/1. Attempted a round. FHTs reassuring) H&P: Results Labs Labs: Short CBC 10/28/23 Range/Units 05:35 WBC 8.1 (4.5-10.0) K/mm3 Hgb 11.3 L (12.0-15.0) g/dL Hct 35.9 L (37.0-47.0) % Plt Count 319 (150-375) k/mm3 Assessment and Plan Assessment and plan (1) Term : Code(s): Z34.90 - Encounter for supervision of normal , unspecified, unspecified trimester Status: Acute (2) Positive testing for group B Streptococcus: Code(s): B95.1 - Streptococcus, group B, as the cause of diseases classified elsewhere Status: Acute Plan medical induction of labor. Group B strep prophylaxis. Spontaneous vaginal delivery is expected.
[2023-10-28] MEDS: SODIUM CHLORIDE 0.9% IV 300 ML 600 ML I-UTERINE (07:51)
--- NOTE | 2023-10-28 08:04 | WPDANESEPP ---
Anes - Eval Pre Procedure Procedure: Labor epidural Date/Time: 10/28/23 08:04 Surgeon: David Choudhury Preop Diagnosis: Pain during labor Pre Op Diagnosis: IOL Patient Data Age: 23 Gender: F Height: 1.6 m Weight: 95 kg Last Vital Signs Temp 36.8 C 10/28/23 05:40 Pulse 60 10/28/23 07:46 Resp 16 10/28/23 05:40 BP 131/82 10/28/23 07:46 Pulse Ox 100 10/28/23 08:00 O2 Del Method Room Air 10/28/23 05:57 Allergies Allergy/AdvReac Type Severity Reaction Status Date / Time No Known Drug Allergies Allergy Unknown Verified 10/28/23 05:21 Home Medications Medication Instructions Recorded Confirmed Type albuterol sulfate 90 mcg/actuation 2 puff inhalation QID PRN 11/20/20 10/28/23 Rx aerosol inhaler shortness of breath or wheezing #6.7 grams prenat.vits,darlene,[id number]-vpoda 1 tablet PO DAILY 10/28/23 10/28/23 History Laboratory Tests 10/28/23 05:35 WBC 8.1 K/mm3 (4.5-10.0) RBC 4.44 M/mm3 (4.2-5.4) Hgb 11.3 L g/dL (12.0-15.0) Hct 35.9 L % (37.0-47.0) MCV 80.9 fl (80-100) MCH 25.5 L pg (26-34) MCHC 31.5 L g/dl (32-36) RDW 14.2 % (11.5-14.5) Plt Count 319 k/mm3 (150-375) MPV 9.3 fl (7.4-10.4) Immature Gran % (Auto) 0.2 % (0-0.5) Neut % (Auto) 53.8 % (45.5-73.1) Lymph % (Auto) 34.7 % (18.3-44.2) [place] % (Auto) 9.7 H % (2.6-8.5) Eos % (Auto) 1.2 % (0-4.4) Baso % (Auto) 0.4 % (0.2-1.2) Lymph # (Auto) 2.82 K/mm3 (0.9-3.2) [place] # (Auto) 0.8 H K/mm3 (0.1-0.6) Eos # (Auto) 0.1 K/mm3 (0-0.3) Baso # (Auto) 0.0 K/mm3 (0.0-0.1) Abs Immat Gran (auto) 0.02 K/mm3 (0.00-0.031) Absolute Neuts (auto) 4.4 K/mm3 (1.3-6.7) Absolute Nucleated RBC 0.0 K/mm3 (0.0-0.012) Nucleated RBC % 0.0 % (0.0-0.2) RPR Pending Blood Type A Positive Antibody Screen Negative Patient hx anesthesia problems: none Family hx anesthesia problems: none Results Review: All pre-operative results and documents have been reviewed as part of the pre-operative evaluation. [facility] Past Medical History Medical History Asthma (Unknown) Surgical History Surgical History Hx of appendectomy 11/20/20 Social History Social History Social History: marijuana everyday Smoking status: Former smoker Tobacco type: cigarettes Second hand tobacco smoke exposure: Yes Alcohol intake: unknown Substance use: never Substance use type: marijuana Last use: 11/26/20 Lack of Transportation: No Lack of Food: Never True Current Housing: I Have Housing Concerned About Future Housing: No Difficulty Paying Gas/Electric Bills: No Difficulty Paying for Meds: No Currently Unemployed: No Education: High School Diploma/GED Difficulty w/ Childcare or Family Care: No Gender identity (if verbalized by the patient): Female Sexual Orientation (if Verbalized by the Patient): Straight or Heterosexual Spiritual care concerns: No Exam Day of Procedure 10/28/23 08:04 Patient weight: overweight Heart: regular rate and rhythm Lungs: clear to auscultation Airway: Mallampati scale class II Neurological: alert and oriented
[2023-10-28] MEDS: AMPICILLIN 1 GM/NS 50 ML 1 GM/50 ML BAG IVPB ×3 (10:50→18:19)
--- NOTE | 2023-10-28 11:46 | PM.OBPNLAB ---
Pain Control Date/time seen: 10/28/23 11:46 Pain control: tolerating well and epidural Pelvic Exam Amniotic membrane status: Leaking Contractions Monitor mode: Internal
[2023-10-28] MEDS: ONDANSETRON INJ 4 MG/2 ML VIAL IV PUSH (14:35)
[2023-10-28 14:54] LABS: Rapid Plasma Reagin Non-Reactive (NonReactive)
--- NOTE | 2023-10-28 17:54 | PM.OBPNLAB ---
Pain Control Date/time seen: 10/28/23 17:54 Pain control: tolerating well and epidural Pelvic Exam Dilation (cm): 6 station: -1 Amniotic membrane status: Leaking Contractions Monitor mode: Internal
--- NOTE | 2023-10-28 19:41 | PM.OBPRVD ---
OB - Vaginal Delivery Note Procedure Delivery date: 10/28/23 Events: Elective Induction of Labor and Positive Group B Strep (GBS) Induction method: AROM Delivery augmentation: Pitocin Delivery monitor: External FHT and Internal FHT Route of delivery: Episiotomy description: None Laceration Description: None Specimen: No Quantitative Blood Loss (ml): 60 Anesthesia type: Epidural Disposition: Floor Complications: No immediate complications Baby Date of : 10/28/23 Time of : 19:32 Weeks of gestation at delivery: 39 Infant gender: Female presentation: vertex position: Right Occiput Anterior Placenta delivery description: Spontaneous Cord Vessel Description: 3 Vessels, Nuchal Cord and Reduced score one minute: 9 score five minutes: 9 Narrative: Ampicillin x4 for group B strep
--- NOTE | 2023-10-28 19:44 | P.DS_ITS ---
DS: Admitting Diagnosis Discharge Date 10/30/2023 Admitting Diagnosis term /positive group B strep DS: Discharge Diagnosis Discharge Diagnosis (1) Positive testing for group B Streptococcus: Code(s): B95.1 - Streptococcus, group B, as the cause of diseases classified elsewhere Status: Acute (2) Term : Code(s): Z34.90 - Encounter for supervision of normal , unspecified, unspecified trimester Status: Acute DS: Summary Hospital Course Reason for hospitalization: patient was admitted on 10/28 3 for induction labor Hospital Course: patient underwent spontaneous vaginal delivery with adequate group B strep prophylaxis on 10/28/2023. Course removal. She remained was voiding generally. Time Spent with Patient Time attestation: Total time spent providing and/or coordinating discharge services: Exam Const: General: cooperative, healthy appearing and comfortable Nutritional Appearance: average body habitus Orientation/consciousness: oriented to person, oriented to place and oriented to time Resp: Effort & Inspection: normal respiratory effort Cardio: Rate: regular rate Rhythm: regular rhythm Heart sounds: S1 normal heart sound present and S2 normal heart sound present GI: Inspection: normal to inspection ( Fundus firm below the umbilicus) DS: Data Data Completed and Pending Labs on day of discharge: Labs from last 24 hours 10/28/23 05:35 WBC 8.1 RBC 4.44 Hgb 11.3 L Hct 35.9 L MCV 80.9 MCH 25.5 L MCHC 31.5 L RDW 14.2 Plt Count 319 MPV 9.3 Immature Gran % (Auto) 0.2 Neut % (Auto) 53.8 Lymph % (Auto) 34.7 [place] % (Auto) 9.7 H Eos % (Auto) 1.2 Baso % (Auto) 0.4 Lymph # (Auto) 2.82 [place] # (Auto) 0.8 H Eos # (Auto) 0.1 Baso # (Auto) 0.0 Abs Immat Gran (auto) 0.02 Absolute Neuts (auto) 4.4 Absolute Nucleated RBC 0.0 Nucleated RBC % 0.0 RPR Non-reactive Blood Type A Positive Antibody Screen Negative Discharge Plan Discharge Attending physician on discharge: Gerson Galindo Discharging Clinician: Gerson Galindo Patient Disposition: Home, Self-Care Activity: may shower and pelvic rest Diet: heart healthy Wound Care Instructions: follow printed instructions Patient Instructions: Antibiotic Form Stand Alone Forms: General Discharge Information Follow-up/Referrals: Gerson Galindo MD [Physician] - Discharge Medications: No Action albuterol sulfate 90 mcg/actuation HFA aerosol inhaler 2 puff inhalation QID PRN (Reason: shortness of breath or wheezing) Qty: 6.7 0RF Vitamin Tablet 1 tablet PO DAILY Date of admission: 10/28/23 05:05 Primary Care Provider: Leeanna,Izzy Dennison Admitting Provider: Gerson Galindo Attending physician on admission: Gerson Galindo Condition: Stable
[2023-10-28] MEDS: OXYTOCIN 30 UNITS/NS 500 ML 30 UNITS/500 ML BAG 125 UNITS IV CONT (20:14)
[2023-10-28] MEDS: BENZOCAINE 20% AER SPR (*SP) 56 GM CAN 1 SPRAY TOPICAL (21:15)
[2023-10-28] MEDS: WITCH HAZEL 40 PADS 1 PAD TOPICAL (21:15)
[2023-10-28] MEDS: IBUPROFEN 600 MG TABLET PO (21:25)
[2023-10-28] MEDS: ACETAMINOPHEN 325 MG TABLET 650 MG PO (23:28)
[2023-10-29] MEDS: IBUPROFEN 600 MG TABLET PO ×2 (04:16→23:09)
[2023-10-29 04:48] VITALS: BP 134/94; PULSE 71; RESP 18; TEMP 36.9; O2SAT 100
[2023-10-29 05:32] LABS: Hematocrit 33.6 % (37.0-47.0); Hemoglobin 10.6 g/dL (12.0-15.0)
--- NOTE | 2023-10-29 06:18 | PM.OBPNVD ---
OB - PN: Subj Subjective Date/time seen: 10/29/23 06:18 Patient comments: no complaints and pain well controlled baby status: doing well OB - PN: Obj Data Labs 10/29/23 04:00 Labs: Laboratory Results - last 24 hr 10/28/23 10/29/23 05:35 04:00 Hgb 10.6 L Hct 33.6 L RPR Non-reactive Blood Type A Positive Antibody Screen Negative OB - PN A/P Plan day: 1 Plan: routine care Time Spent With Patient Time: Total time spent is greater than 50% in coordination of care (as documented) at patient's floor/unit and/or counseling patient: Time with patient: less than 15 minutes Exam Const: General: cooperative, healthy appearing and comfortable Nutritional Appearance: average body habitus Orientation/consciousness: oriented to person, oriented to place and oriented to time Resp: Effort & Inspection: normal respiratory effort Cardio: Rate: regular rate Rhythm: regular rhythm Heart sounds: S1 normal heart sound present and S2 normal heart sound present GI: Inspection: normal to inspection
[2023-10-29] MEDS: ACETAMINOPHEN 325 MG TABLET 650 MG PO (07:17)
[2023-10-29] MEDS: DOCUSATE SODIUM 100 MG CAPSULE PO (07:17)
[2023-10-29] MEDS: MULTIVIT/MIN/PREN/FOL AC/IRON TABLET 1 TAB PO (07:17)
[2023-10-29 09:08] VITALS: BP 126/51; PULSE 69; RESP 18; TEMP 36.4; O2SAT 99
--- NOTE | 2023-10-29 09:15 | WPDANLDPN2 ---
Anes-Prog Note L&D Date/Time: 10/29/23 09:15 Comfortable throughout: labor and delivery Neuraxial method: epidural Epidural/Spinal procedure site: clean & non-tender Neuro status: Neuro function grossly intact. Cardiovascular status: normal Respiratory status: normal Airway patency: baseline Mental status: baseline Post-Op hydration status: normal Vital Signs: Last Vital Signs Temp 36.4 C 10/29/23 09:08 Pulse 69 10/29/23 09:08 Resp 18 10/29/23 09:08 BP 126/51 L 10/29/23 09:08 Pulse Ox 99 10/29/23 09:08 O2 Del Method Room Air 10/28/23 23:00 Pain score (VAS): 2/10 I/O: Intake & Output 10/28/23 10/29/23 10/29/23 23:59 07:59 15:59 Intake Total 1550 Output Total 156 Balance 1394 Post-procedural complaints: none Patient feedback: Patient satisfied with anesthetic care.
[2023-10-29 12:20] VITALS: BP 109/60; PULSE 72; RESP 16; TEMP 36.9; O2SAT 99
--- NOTE | 2023-10-29 13:29 | PC.NURSE ---
[id number] Introductions were made, then consulted with patient to assess needs related to . Discussed with mother her?plans to feed?her infant, the?experience so far, RN encouraged [id number], stimulation, changed a stool diaper, then offered assistance with the next session. Resources provided for inpatient and outpatient services with the feeding sheet, mom/baby guide and name written on the communication board. Infant left [id number] and mother encouraged to call when she sees feeding cues to respond to or 1130 if there is no latch. Mother voiced understanding of information and will call if there is a request for assistance. Reported to the Primary RN. 1130 - Purposefully rounded to assess for needs and check a blood sugar. Mother is sitting up to eat and a visitor is holding the infant. Reported to the Primary RN. 1310- Purposefully rounded to assess for needs. Primary RN had checked a blood sugar before feeding of >70mg/dl. Mother states she independently latched her infant without pain and denies any misshaping of the nipple (no slanting, pinched look or flattening) after . Mother acknowledges that she sees infant suck, swallow (dropping the lower jaw), then pauses. Assistance with the next feeding is offered and mother encouraged to call. Mother voiced understanding of the information.
--- NOTE | 2023-10-29 18:31 | PC.NURSE ---
1400 Patient viewed the discharge video Mother & Baby Care, The First Two Weeks . Patient was given the opportunity and encouraged to ask questions. Patient verbalized understanding of information shared and has been given the mother/baby guide for home reference.
[2023-10-29 21:32] VITALS: BP 129/84; PULSE 60; RESP 16; TEMP 36.8; O2SAT 100
--- NOTE | 2023-10-30 06:39 | PM.OBPNVD ---
OB - PN: Subj Subjective Date/time seen: 10/30/23 06:39 Patient comments: no complaints and pain well controlled baby status: doing well OB - PN: Obj Data Labs 10/29/23 04:00 OB - PN A/P Plan day: 2 Plan: routine care, discharge home and follow up 6 weeks Time Spent With Patient Time: Total time spent is greater than 50% in coordination of care (as documented) at patient's floor/unit and/or counseling patient: Time with patient: less than 15 minutes Exam Const: General: cooperative, healthy appearing and comfortable Nutritional Appearance: average body habitus Orientation/consciousness: oriented to person and oriented to place Resp: Effort & Inspection: normal respiratory effort Cardio: Rate: regular rate Rhythm: regular rhythm Heart sounds: S1 normal heart sound present and S2 normal heart sound present GI: Inspection: normal to inspection
[2023-10-30 08:52] VITALS: BP 110/65; PULSE 117; RESP 18; TEMP 36.9; O2SAT 100
[2023-10-30] MEDS: MULTIVIT/MIN/PREN/FOL AC/IRON TABLET 1 TAB PO (09:48)
[2023-10-30] MEDS: DOCUSATE SODIUM 100 MG CAPSULE PO (09:48)
[2023-10-30] MEDS: IBUPROFEN 600 MG TABLET PO (09:49)
[2023-10-31 10:30] VITALS: BP 132/85; PULSE 65; RESP 18; TEMP 37.6; O2SAT 99
== END 2023-10-30 11:45 | disposition home or self-care (01) | DRG 560 ==
LOC: ANHLDR 19:46 → ANHOB2 22:08
PROVIDERS: Admitting Provider Obstetrics & Gynecology; PCP Family Medicine; Visit Provider Obstetrics & Gynecology
DX: O99.824 Streptococcus B carrier state complicating childbirth (principal); Z37.0 Single live birth; Z3A.39 39 weeks gestation of pregnancy; O69.81X0 Labor and delivery complicated by cord around neck, without compression, not applicable or unspecified; Z23 Encounter for immunization
CPT/HCPCS: 36415; 85014; 85018; 85025; 86592; 86850; 86900; 86901; 90471; 90686; A9270; G0008; J0290; J2405; J2590; J2795; J7030; J7120